=== PATIENT | female | born 1975 | race Caucasian/White ===

== ENCOUNTER 2016-07-28 08:54 | Inpatient (IN) | payer MEDICAID ==
[~2016-07-28 08:54] MED LIST: BUPIVACAINE/EPI 0.25% 30 ML SDV ONE; DEXAMETHASONE 10 MG/ML VIAL IV ONE; LIDO/EPI 1% **Not for Epidural 20 ML MDV ONE; ceFAZolin 2 GM/DEXTROSE 100 ML IV ONE
[2016-07-28] MEDS ORDERED: DEXAMETHASONE 10 MG/ML VIAL ONE (09:44)
[2016-07-28] MEDS ORDERED: CEFAZOLIN 2 GM/DEXTROSE/100 ML BAG IV ONE (09:44)
[2016-07-28] MEDS ORDERED: LR 1,000 ML IV ONE (09:51)
[2016-07-28 10:17] LABS: ANION GAP 13 mEq/L (8-16); CALCIUM 9.9 mg/dL (8.5-10.4); CARBON DIOXIDE 20 mEq/l (22-31); CHLORIDE 105 mEq/L (97-110); CREATININE 0.4 mg/dL (0.6-1.0); GLOMERULAR FILTRATION RATE > 60; GLUCOSE 299 mg/dL (70-100); POTASSIUM 4.9 mEq/L (3.5-5.2); SODIUM 138 mEq/L (134-144)
[2016-07-28] MEDS ORDERED: MIDAZOLAM 2 MG/2 ML VIAL ONE (10:38)
[2016-07-28] MEDS ORDERED: PROPOFOL 200 MG/20 ML VIAL ONE ×2 (10:39→12:57)
[2016-07-28] MEDS ORDERED: fentaNYL 100 MCG/2 ML INJ ONE ×3 (10:39→13:45)
[2016-07-28] MEDS ORDERED: LIDOCAINE 2% 5 ML SDV ONE (10:41)
[2016-07-28] MEDS ORDERED: ROCURONIUM 50 MG/5 ML VIAL ONE (10:41)
[2016-07-28] MEDS ORDERED: METHYLENE BLUE 1% 10 MG/ML VIAL ONE (10:58)
[2016-07-28] MEDS ORDERED: SUGAMMADEX SODIUM 200 MG/2 ML VIAL IVP ONE ×2 (12:36→12:51)
--- NOTE | 2016-07-28 12:38 | GOP ---
[f rep st] OPERATIVE REPORT DATE OF OPERATION: 07/28/2016 SURGEON: Jennifer Isaacs MD [employer] NOVELTY: None. ANESTHESIA: General endotracheal. PREOPERATIVE DIAGNOSIS: 1. Deviated nasal septum. 2. Turbinate hypertrophy. POSTOPERATIVE DIAGNOSIS: 1. Deviated nasal septum. 2. Turbinate hypertrophy. PROCEDURE PERFORMED: 1. Septoplasty. 2. Bilateral inferior turbinate reduction. FINDINGS: 1. Deviated nasal septum to the left, greater than 80% of the nasal passageway. 1. Turbinate hypertrophy. 2. SPECIMENS: None. ESTIMATED BLOOD LOSS: Less than 20 cc. INDICATIONS: The patient is a 41-year-old female who initially presented to me for an epiglottic ma ss (this will be taken care of by my partner in a separate operative note, Dr. Sandra Perdomo, who will perform excision of this). She separately complained of chronic, left-sided nasal obstruction, and we discussed the surgery to correct this. Risks, benefits, and alternatives were discussed, and she decided to proceed forward. DESCRIPTION OF PROCEDURE: The patient was met in preoperative holding. Informed consent was confir med. The patient was brought to the operating room. Time-out was performed. She underwent inducti on of general anesthesia with placement of an endotracheal tube without difficulty. She was positio corin, prepped, and draped in the standard fashion. 6 cc pf 1% lidocaine with 1:100,000 epinephrine w as then infiltrated throughout her nasal septum as well as her inferior turbinates. Afrin pledgets were placed bilaterally for additional hemostasis and decongestant. A hemitransfixion incision on t he left side was made with the 15 blade scalpel and submucoperichondrial flap on the left side was e levated with the caudal elevator. Preserving 1 cm caudally, the cartilage was incised, and the cont ralateral right side submucoperichondrial flap was then elevated. The anterior septum was not the p rimary issue in terms of the deviation, as it was mostly posterior. Next, the mid to posterior bony cartilaginous nasal septum that was deviated to the left was then removed with a combination of Kota blandon forceps as well as a Jackie swivel knife. A 1 cm dorsal strip also remained intact. Next , 30-degree rigid endoscope was introduced into the nose. The septal flaps were intact, and the sep dominik was in midline. Stab incisions into each inferior turbinate head were made with the 15 blade sc alpel, and using a 2 mm microdebrider, a submucous resection of each inferior turbinate was then per formed bilaterally to the level of the choana. Each inferior turbinate was then subsequently outfra ctured. Next, a drainage hole on the left side was made with the 15 blade scalp inferiorly and post eriorly, and the hemitransfixion incision was closed with 4-0 chromic suture. Urias splints were th en affixed using a 3-0 Prolene stitch, and the nose was suctioned free of any excess blood. At this point, the patient was rotated 90 degrees and turned over to Dr. Perdomo for her portion of this case . I personally performed all portions of this case. At the end of this procedure, all sponge, need le, and sharp counts were correct for my portion of this case. FLUIDS: 800 cc crystalloid. /[id number]/MODL
[2016-07-28] MEDS ORDERED: ONDANSETRON 4 MG/2 ML VIAL ONE (12:44)
[2016-07-28] MEDS ORDERED: FUROSEMIDE 20 MG/2 ML VIAL ONE (13:09)
[2016-07-28] MEDS ORDERED: INSULIN REGULAR HUMAN 100 UNIT/ML ONE ×2 (13:46→16:04)
--- NOTE | 2016-07-28 14:14 | GOP ---
[f rep st] OPERATIVE REPORT DATE OF OPERATION: 07/28/2016 SURGEON: Sandra Perdomo MD ANESTHESIA: General tracheal anesthesia with a laser safe tube. PREOPERATIVE DIAGNOSIS: Epiglottis mass. POSTOPERATIVE DIAGNOSIS: Epiglottis mass PROCEDURE PERFORMED: FINDINGS: ESTIMATED BLOOD LOSS: None. INDICATIONS: This is a 41-year-old female, who presents with symptoms of dysphagia. On laryngoscop y in the office patient was found to have a yellow lobulated mass on the lingual surface of the epig lottis. Because of the large lingual tonsils, I was unable to see the mass completely so further im aging was performed, which confirmed a fairly localized mass to the vallecula on the epiglottis. Af ter discussion of the options, the patient has elected for surgical excision. DESCRIPTION OF PROCEDURE: After Dr. Corley' conclusion of her case, the table was turned 90 degree s and methylene blue was inserted in the proximal cuff of the laser safe tube. An upper tooth guard was fashioned using Aquaplast and the supraglottis scope was used to visualize the epiglottis and t he mass. The patient was then placed in suspension and prepped and draped in usual fashion. Then, additional wet towels were surrounded around the patient's face, all the way around the laryngoscope and pledgets soaked in saline were placed on the glottal surface of the epiglottis to protect the a irway. Microscope was brought into place and the epiglottis was visualized under the microscope. T he Omni guide laser on a setting of 6 was then used to excise the mass at the base. A clear border was seen between the lobulated mass and the epiglottis. The laser was then used to completely excis e it. It ran the entire length of the epiglottis into the vallecula but did not extend onto the bas e of tongue. After removal there was no bleeding seen. At this point, the pledgets were removed. Final count was confirmed. Patient was awoken from anesthesia, extubated, and transferred to PACU i n stable condition. PROCEDURE: Microdirect laryngoscopy with laser excision of epiglottis mass. COMPLICATIONS: None. /[id number]/MODL
[2016-07-28] MEDS ORDERED: INSULIN REGULAR HUMAN 100 UNIT/ML IVP ONE (16:30)
[2016-07-28] MEDS ORDERED: LOSARTAN POTASSIUM 50 MG TAB PO ONE (16:30)
[2016-07-28] MEDS ORDERED: ACETAMINOPHEN/CODEINE 300/30MG TAB PO PRN (16:46)
[2016-07-28] MEDS ORDERED: INSULIN REGULAR HUMAN 100 UNIT/ML SC ONE (17:00)
[2016-07-28] MEDS ORDERED: ACETAMINOPHEN/CODEINE 300/30MG TAB ONE (17:06)
[2016-07-28] MEDS ORDERED: metFORMIN HCL 500 MG TAB PO ONE (17:30)
[2016-07-28] MEDS ORDERED: metFORMIN SR 500 MG TAB PO ONE (18:00)
[2016-07-28] MEDS ORDERED: ACETAMINOPHEN 325 MG TAB PO PRN (20:57)
[2016-07-28] MEDS ORDERED: ONDANSETRON 4 MG/2 ML VIAL IVP PRN (20:57)
[2016-07-28] MEDS ORDERED: ONDANSETRON DISINTEGRATING 4 MG TAB PO PRN (20:57)
[2016-07-28] MEDS ORDERED: NS 1,000 ML IV SCH (21:00)
--- NOTE | 2016-07-28 21:30 | GHP ---
[f rep st] HISTORY AND PHYSICAL DATE OF ADMISSION: 07/28/2016 CHIEF COMPLAINT: Post septoplasty. HISTORY OF PRESENT ILLNESS: This is a 41-year-old female who was in for an outpatient elective septoplasty, as well as epiglottic lesion resection today. These were performed by Dr. Corley and Dr. Perdomo. Postoperatively, she had severe laryngospasm after extubation, which nearly required re-intubation versus emergent trach. This resolved without significant issue. She was then taken to PACU and refused BiPAP there though she continued to be hypoxic. She says that she has been hypoxic postoperatively in the past. She is tachycardic , which however, she tells me that her pulse at baseline runs about 100. She is denying chest pain, shortness of breath, cough, nausea, vomiting. PAST MEDICAL/SURGICAL HISTORY: 1. Diabetes mellitus type 2 on insulin. 2. Hypertension. 3. Obesity. 4. Hyperlipidemia. MEDICATIONS: Please see medication reconciliation. ALLERGIES: Oxycodone. FAMILY HISTORY: Mother has Alzheimer's. SOCIAL HISTORY: She smokes. She does not drink. REVIEW OF SYSTEMS: A 10-point review of systems is conducted and is negative except per HPI. As I am speaking with her, her facial mask slipped and it hit her in her right eye. She has then since been complaining of eye pain. PHYSICAL EXAM: VITAL SIGNS: Blood pressure 125/86, heart rate 107, respiration rate 14, saturating 98% , temperature 36.5. GENERAL: The patient is a pleasant female who appears somewhat uncomfortable. HEENT: Shows a right eye to have a mild abrasion on it. Both nares are filled with dried blood. CARDIOVASCULAR: Shows a regular rate and rhythm. There are no murmurs, rubs, or gallops. She is tachycardic, however. PULMONARY: Shows her to be in no respiratory distress. She is clear to auscultation bilaterally. ABDOMEN: Soft , nontender, nondistended. SKIN: No rash. : No Muller. NEUROLOGIC: Shows her to be alert and oriented x3. She is moving all extremities. PSYCHIATRIC: Exam shows normal mood and affect. LABORATORY DATA: Bicarb is 20, creatinine 0.4, glucose is 299. Data: I discussed this with Dr. Perdomo. IMPRESSION AND PLAN: This is a 41-year-old female with postoperative laryngospasm and hypoxia. 1. Hypoxia: This is persistent. She has had problems with hypoxia postoperatively in the past. Lungs sound clear. She is tachycardic. I doubt pulmonary embolism at this point, as she tells me she is tachycardic at baseline. This may be slow recovery from anesthesia. I will get a chest x- ray. We will follow her closely, if this does not resolve consider CT angiogram. 2. Right corneal abrasion: eye lubricant. This is due to her facial mask slipping while I was in the room. 3. Diabetes mellitus type 2: I will continue her high dose of insulin, as well as her other medications while holding metformin. 4. Hypertension: Continue her losartan. 5. Hyperlipidemia: Crestor. She will be seen by Dr. Corley tomorrow. If her hypoxia resolves she may be discharged. /[id number]/MODL MTDD
[2016-07-28] MEDS: GABAPENTIN 300 MG CAP PO SCH (22:35)
[2016-07-28] MEDS: FLUoxetine 20 MG CAP PO SCH (22:35)
[2016-07-28] MEDS: ROSUVASTATIN CALCIUM 10 MG TAB PO SCH (22:36)
[2016-07-28] MEDS: OXYCODONE/APAP 5/325 TAB PO PRN (22:36)
[2016-07-28] MEDS: PETROLAT,WHT/MIN OIL/SOD CHL 3.5 GM OPHT.OINT EACHEYE PRN (22:48)
[2016-07-29] MEDS: OXYCODONE/APAP 5/325 TAB PO PRN ×2 (09:02→22:33)
[2016-07-29] MEDS: PETROLAT,WHT/MIN OIL/SOD CHL 3.5 GM OPHT.OINT EACHEYE PRN (09:03)
[2016-07-29] MEDS: FLUTICASONE NASAL 120 SPRAYS/16 GM MDI EACHNARE SCH (09:34)
[2016-07-29] MEDS ORDERED: D50W 25 GM/50 ML SYR IVP PRN (10:33)
[2016-07-29] MEDS: INSULIN LISPRO 100 UNIT/ML SC SCH ×4 (10:49→18:33)
[2016-07-29 11:29] LABS: % IMMATURE GRANULYOCYTES 0.5 % (0.0-1.1); ABSOLUTE IMMATURE GRANULOCYTES 0.07 10^3/uL (0.00-0.10); ADD DIFF? NO; ADD MORPH? NO; ADD SCAN? NO; ATYPICAL LYMPHOCYTE FLAG 0 (0-99); FRAGMENT RBC FLAG 0 (0-99); HEMATOCRIT 36.2 % (38.0-47.0); LEFT SHIFT FLG 0 (0-99); LIPEMIA HEMOLYSIS FLAG 80 (0-99); MEAN CELL HEMOGLOBIN 26.4 pg (27.9-34.1); MEAN CELL HEMOGLOBIN CONCENTR. 33.1 g/dL (32.4-36.7); MEAN CELL VOLUME 79.6 fL (81.5-99.8); MEAN PLATELET VOLUME 10.5 fL (8.7-11.7); PLATELET CLUMPS FLAG 10 (0-99); PLATELET COUNT 322 10^3/uL (150-400); RED BLOOD CELL COUNT 4.55 10^6/uL (4.18-5.33); RED CELL DISTRIBUTION WIDTH 16.2 % (11.5-15.2)
[2016-07-29 11:48] LABS: ANION GAP 9 mEq/L (8-16); CALCIUM 10.3 mg/dL (8.5-10.4); CARBON DIOXIDE 26 mEq/l (22-31); CHLORIDE 103 mEq/L (97-110); CREATININE 0.7 mg/dL (0.6-1.0); GLOMERULAR FILTRATION RATE > 60; GLUCOSE 332 mg/dL (70-100); POTASSIUM 4.4 mEq/L (3.5-5.2); SODIUM 138 mEq/L (134-144)
--- NOTE | 2016-07-29 12:59 | HOSPPROG ---
Hospitalist Progress Note Assessment/Plan: 41 yo F with PMH of epiglottic mass s/p resection with post op laryngospasm followed by prolonged hypoxia # hypoxic respiratory failure: had complicated extubation with laryngospasm followed by prolonged hypoxia, initially requiring 8L of o2. CXR showing airways disease as well as patchy bilateral infiltrates possibly compatible with pna but more likely atelectasis given lack of clinical suggestion of pna. D dimer negative so PE essentially ruled out. Have been able to titrate down on the O2 rather quickly. Suspect component of aspiration pneumonitis contributing w/o clincial suggestion of pneumonia so will not start abx at this point. # intermittent tachycardia: per patient this is her baseline, for the most part has been in 80-90s # epiglottic lesion: s/p resection, path pending, will f/u with ENT # right corneal abrasion: continue lubricant drops, relatively asymptomatic # chronic medical issues: DM2, HTN, HLD--continue op mgmt # dispo: pending improvement in o2 sats, if able to wean off of oxygen will likely dc later today. If o2 needs remain elevated will monitor again overnight Patient new to my care. Old records reviewed and summarized as above. Subjective: no significant overnight events, patient feeling well, denies shortness of breath even when oxygen is off, no fever or chills, no cough Objective: Vital Signs Temp Pulse Resp BP Pulse Ox 36.6 C 90 16 122/76 H 94 07/29/16 11:07 07/29/16 11:07 07/29/16 11:07 07/29/16 11:07 07/29/16 11:07 Laboratory Results 07/29/16 11:23 07/29/16 11:23 07/28/16 07/29/16 07/30/16 05:59 05:59 05:59 Intake Total 1700 Output Total 75 Balance 1625 awake alert nad anicteric op clear rrr no mrg cta b soft nt nd no cce warm dry well perfused oriented appropriate ICD10 Worksheet Patient Problems: Problems Problem Status Onset Hypoxia Acute
[2016-07-29] MEDS ORDERED: GABAPENTIN 100 MG CAP PO PRN (15:00)
[2016-07-29 15:17] VITALS: O2SAT 93
[2016-07-29] MEDS: ROSUVASTATIN CALCIUM 10 MG TAB PO SCH (22:26)
[2016-07-29] MEDS: GABAPENTIN 300 MG CAP PO SCH (22:26)
[2016-07-29] MEDS: FLUoxetine 20 MG CAP PO SCH (22:26)
[2016-07-30 08:18] VITALS: BP 158/99; PULSE 107; RESP 18; TEMP 98.6
[2016-07-30] MEDS: INSULIN LISPRO 100 UNIT/ML SC SCH (08:41)
[2016-07-30] MEDS: FLUTICASONE NASAL 120 SPRAYS/16 GM MDI EACHNARE SCH (08:43)
--- NOTE | 2016-07-30 11:20 | GDS ---
[f rep st] DISCHARGE SUMMARY DIAGNOSES: 1. Epiglottic mass, status post excision. 2. Acute respiratory failure with hypoxemia postoperatively, now resolved. 3. Possible aspiration pneumonia without evidence on chest x-ray. 4. Tachycardia, now at baseline. CHRONIC DIAGNOSES: 1. Diabetes mellitus. 2. Hypertension. 3. Hyperlipidemia. CONSULTATION: ENT with Dr. Sandra Perdomo. PROCEDURE: ENT excision of a vallecular mass. HOSPITAL COURSE: A 41-year-old female who underwent a surgical resection of an epiglottic mass. Postoperatively she developed severe laryngospasm after extubation, and required re-intubation emergently. She was noted to be hypoxic following her extubation on the BiPAP. There was possibility of an aspiration, although chest x-ray did not confirm any infiltrate. Hypoxemia progressively resolved in the next 24 hours postoperatively, and she had no further swallowing , breathing problems. Her chronic medical problems were managed in the usual fashion. It is noted she did have persistent tachycardia at times, but she reports that this is normal for her, as her heart rate runs high she reports. She denied having any chest pain, or shortness of breath, or prior history of coronary disease. As the patient's hypoxemia and acute respiratory failure resolved, she will be discharged home with outpatient followup without O2. Final oxygen saturation on room air was 93%. She remained afebrile. DISCHARGE MEDICATIONS: Usual medications as follows: Naproxen 220 mg twice daily p.r.n., metformin 500 mg twice daily, losartan 50 mg h.s., Crestor 10 mg daily, petroleum eye ointment as needed, Tradjenta 5 mg p.o. h.s., insulin detemir 80 units subcu h.s., gabapentin 300 mg h.s., and gabapentin 100 mg p.o. daily, fluticasone nasal spray 2 sprays in each nostril daily, Prozac 20 mg daily, Diflucan 150 mg p.o. on Wednesday only. NEW MEDICATIONS: None. STOPPED MEDICATIONS: None. PLAN: The patient is discharged to home. Condition is good. Her diet will be regular diet without modifications. Followup will be with Dr. Sandra Perdomo in 7- 10 days. She will also follow up with her primary care provider, Dr. Jodi Hood , on a p.r.n. basis for management of her other medical problems. Laboratories of note at the time of discharge, we have biopsy of the mass pending. Time: 45 minutes > 50% to pet adoption counselor and coordinate care, call to Dr Perdomo, discuss findings with patient and plan Copy requested to: Dr. Jodi Hood /[id number]/MODL MTDD
[2016-08-03] MEDS ORDERED: FLUCONAZOLE 150 MG TAB PO SCH (09:00)
== END 2016-07-30 12:09 | disposition home or self-care (01) | DRG 987 ==
LOC: FSGY 08:54 → F3E 19:04 → OBSVTOIN 07-29 12:59
PROVIDERS: ADMIT Otolaryngology; ATTEND Otolaryngology
PROC: 09TL0ZZ Resection of Nasal Turbinate, Open Approach (ICD-10-PCS; principal; 2016-07-28 10:45)
PROC: 090K0ZZ Alteration of Nasal Mucosa and Soft Tissue, Open Approach (ICD-10-PCS; principal; 2016-07-28 10:45)
PROC: 0CBR8ZX Excision of Epiglottis, Via Natural or Artificial Opening Endoscopic, Diagnostic (ICD-10-PCS; 2016-07-28 10:45)
DX: J96.01 Acute respiratory failure with hypoxia (principal); J69.0 Pneumonitis due to inhalation of food and vomit; J38.5 Laryngeal spasm; D14.1 Benign neoplasm of larynx; J34.3 Hypertrophy of nasal turbinates; J34.2 Deviated nasal septum; R00.0 Tachycardia, unspecified; E11.9 Type 2 diabetes mellitus without complications; I10 Essential (primary) hypertension; E78.5 Hyperlipidemia, unspecified; S05.01XA Injury of conjunctiva and corneal abrasion without foreign body, right eye, initial encounter; Z79.84 Long term (current) use of oral hypoglycemic drugs
CPT/HCPCS: G0378; J0690; J1815; J2250; J2405; J2704; J3010; Q9968